=== PATIENT | female | born 1960 ===

== ENCOUNTER 2018-10-07 12:46 | Emergency (ER) | payer OTHER ==
[~2018-10-07] VITALS: Ht 157.5 cm; Wt 90.7 kg
[~2018-10-07 12:46] MED LIST: ALTACE2.5 MG; ALTACE5 MG PO; AMARYL; GLUCOPHAGE XR500 MG PO; NEURONTIN600 MG; SYNTHROID150 MCG PO
[2018-10-07] MEDS ORDERED: SYNTHROID75 MCG (14:46)
[2018-10-07] MEDS ORDERED: ALTACE5 MG (14:47)
[2018-10-07] MEDS ORDERED: ADULT ASPIRIN81 MG (14:47)
== END 2018-10-07 17:36 | disposition home or self-care (01) ==
LOC: ER 12:46
DX: B02.8 Zoster with other complications (principal); R53.81 Other malaise